=== PATIENT | female | born 1980 | race Caucasian/White ===

== ENCOUNTER 2018-06-24 02:31 | Emergency (ER) | payer MEDICAID ==
[~2018-06-24] VITALS: Ht 149.9 cm; Wt 102.0 kg
[2018-06-24] MEDS ORDERED: KETOROLAC 60MG/2ML VIAL IM ONE (06:45)
[2018-06-24 07:01] VITALS: BP 127/79
[2018-06-24 07:14] LABS: CLARITY URINE TURBID (CLEAR); COLOR URINE AMBER (YELLOW); KETONES URINE NEGATIVE (NEGATIVE); LEUKOCYTE ESTERASE URINE NEGATIVE (NEGATIVE); NITRITE URINE NEGATIVE (NEGATIVE); OCCULT BLOOD URINE NEGATIVE (NEGATIVE); PROTEIN URINE NEGATIVE (NEGATIVE); SPECIFIC GRAVITY URINE 1.034 (1.005-1.030)
== END 2018-06-24 07:07 | disposition home or self-care (01) ==
LOC: ER 03:03
DX: S16.1XXA Strain of muscle, fascia and tendon at neck level, initial encounter (principal); V49.49XA Driver injured in collision with other motor vehicles in traffic accident, initial encounter; Y93.89 Activity, other specified; Y92.414 Local residential or business street as the place of occurrence of the external cause
CPT/HCPCS: 81003; 81025; 96372; 99283; J1885